=== PATIENT | male | born 1970 | race Caucasian/White ===

== ENCOUNTER → 2016-12-31 | Outpatient (CLI) | payer MEDICARE ==
[~2016-12-31] MED LIST: ANTACID650 MG PO; APIDRA (NF100 UNITS/ SUBQ; ASPIRIN81 M1 PO; ASPIRIN81 MG PO; B COMPLEX1 TAB PO; B-COMPLEX1 TAB PO; BLOOD PRESSURE MED; CLONIDINE1 EACH TD; DOMPERIDONE; E.E.S. 200200 MG/5 M PO; E.E.S.-GRA200 MG/5 M PO; ERYTHROMYCIN ETHYLSUCCINATE PO; ERYTHROMYCIN250 M1 PO; FAMOTIDINE PO; FOLIC ACID PO; FOLIC ACID1 MG PO; KROGER PHARMACY; LANTUS100 U/M1 SQ; LANTUS100 U/ML SQ; LANTUS100 U/ML SUBQ; LANTUS100 UNITS/; LANTUS100 UNITS/ SUBQ; LEVEMIR100 U/ML SQ; LIPITOR PO; LIPITOR20 MG DOB; LIPITOR20 MG PO; LISINOPRIL PO; LISINOPRIL10 MG PO; LISINOPRIL20 MG PO; NORVASC PO; NOVOLOG INSULIN SQ; NOVOLOG100 U/ML; NOVOLOG100 U/ML SUBQ; OMEPRAZOLE40 M1 PO; OMEPRAZOLE40 MG PO; PATIENT'S PHARMACY; PERCOCET 51 UDTAB 5/ DOB; PHENERGAN SUPP25 MG PR; PHENERGAN12.5 M1 PR; PRILOSEC PO; PRILOSEC20 M1 PO; PRILOSEC40 MG PO; PROMETHEGAN12.5 MG RC; REGLAN; REGLAN PO; REGLAN10 MG PO; SOD BICARBONATE PO; SODIUM BICARBO650 MG PO; ST JOSEPH ASPIR81 MG PO; ZESTRIL10 MG PO; ZESTRIL5 MG PO; ZITHROMAX; ZOFRAN 4 MG PO; [UNRECOGNIZED DRUG - OTHER] SQ
[2016-12-31 16:55] LABS: ALBUMIN SERUM 3.8 g/dL (3.5-5.0); BILIRUBIN,TOTAL 0.6 mg/dL (0.2-2.0); BUN/CREATININE RATIO 7.5; CALCIUM SERUM 8.9 mg/dL (8.4-10.2); CREATININE SERUM 1.6 mg/dL (0.6-1.4); GLOM FILT RATE Estimated 51.3 mL/min (>60); PHOSPHOROUS 2.7 mg/dL (2.5-4.6); POTASSIUM 3.7 mmol/L (3.5-5.1); PROTEIN TOTAL SERUM 6.7 g/dL (6.0-8.3); URIC ACID 4.7 mg/dL (2.6-7.2)
== END | disposition home or self-care (01) ==
LOC: CLAB 15:58
PROVIDERS: Internal Medicine Nephrology
DX: N18.3 Chronic kidney disease, stage 3 (moderate) (principal); N25.81 Secondary hyperparathyroidism of renal origin
CPT/HCPCS: 36415; 80053; 82310; 83970; 84100; 84550